=== PATIENT | female | born 1985 | race African-American/Black ===

== ENCOUNTER 2024-02-12 01:04 | Emergency (ER) | payer OTHER ==
[2024-02-12] MEDS ORDERED: ROCURONIUM 50 MG/5 ML VIAL IV ONE (01:05)
[2024-02-12] MEDS ORDERED: ETOMIDATE 20 MG/10 ML VIAL IV ONE (01:05)
[2024-02-12] MEDS ORDERED: propofoL 1,000 MG/100 ML VIAL IV ONE ×2 (01:13→07:32)
[2024-02-12 02:25] LABS: Absolute Basophils 0.1 K/uL (0-0.5); Absolute Eosinophils 1.4 K/uL (0-0.5); Absolute Lymphocytes (CBC) 1.4 K/uL (0.7-4.9); Absolute Neutrophil 14.6 K/uL (1.8-8.0); Basophils % 0.4 % (0-1.3); Eosinophils % 7.7 % (0-4.4); Hematocrit 27.6 % (36.0-45.0); Hemoglobin 8.7 g/dL (12.0-15.0); Lymphocytes % 7.7 % (15.3-44.8); MCH 26.5 pg (27.0-35.0); MCHC 31.6 g/dL (32.0-36.0); MCV 83.9 fL (80-100); MPV 7.7 fL (7.6-11.3); Monocytes % 5.4 % (3.3-12.3); Neutrophils % 78.8 % (41.7-73.7); Nucleated RBC Absolute Count 0.2 (0-0); Nucleated Red Blood Cells % 1.3 % (0-0); Platelets 261 thou/uL (152-406); RBC Red Blood Cell Count 3.29 M/uL (3.86-4.86); Red Cell Distribution Width 21.4 % (12.1-15.2)
[2024-02-12] MEDS ORDERED: FUROSEMIDE 40 MG/4 ML VIAL ONE (02:41)
[2024-02-12 02:49] LABS: Arterial Blood Carboxyhemoglob 1.5 % (0-1.5); Blood Gas Oxyhemoglobin 89.5 % (94-97); Blood Gas THB 9.3 g/dl (12-18); Blood O2 Saturation 92.6 % (92-98.5)
[2024-02-12 02:52] LABS: PT Prothrombin Time 15.4 SECONDS (9.4-12.5); Protime INR 1.39
[2024-02-12 02:53] LABS: Thyroid Stimulating Hormone 0.996 uIU/mL (0.358-3.740)
[2024-02-12 02:56] LABS: Albumin 2.3 g/dL (3.4-5.0); Albumin/Globulin Ratio 0.5 (1.1-1.8); Anion Gap 16.2 mEq/L (5.0-15.0); Bilirubin Direct 0.2 mg/dL (0-0.2); Bilirubin Indirect, Calculated 0.8 mg/dL (0.2-0.8); Globulin 4.7 g/dL (2.3-3.5); Magnesium 2.5 mg/dL (1.6-2.4); Potassium 4.2 mEq/L (3.5-5.1); Troponin High Sensitivity 35.2 pg/mL (<58.9)
--- NOTE | 2024-02-12 04:54 | RAD REPORT ---
EXAM: CT Head Without Intravenous Contrast CLINICAL HISTORY: The patient is 39 years old and is Female; Dizzy. TECHNIQUE: Axial computed tomography images of the head/brain without intravenous contrast. Sagit ailin and coronal reformatted images were created and reviewed. This CT exam was performed using one or more of the following dose reduction techniques: automated exposure control, adjustment of t he mA and/or kV according to patient size, and/or use of iterative reconstruction technique. COMPARISON: No relevant prior studies available. FINDINGS: Brain: Unremarkable. No hemorrhage. No significant white matter disease. No edema. Ventricles: Unremarkable. No ventriculomegaly. Bones/joints: Unremarkable. No acute skull fracture. Soft tissues: Unremarkable. Sinuses: Mild mucosal thickening. Mastoid air cells: No significant mastoid fluid. Tubes, lines and devices: NG tube visualized. IMPRESSION: No acute intracranial findings. No hemorrhage. Electronically signed by: Kim Davis MD 02/12/2024 04:50 AM [facility] [place] Due to temporary technical issues with the PACS/AMDL reporting system, reports are being milla d by the in-house radiologist without review as a courtesy to ensure prompt reporting the interpreting radiologist is fully responsible for the content of the report. Transcribed Date/Time: 02/12/2024 4:54 AM
--- NOTE | 2024-02-12 04:56 | RAD REPORT ---
CT CHEST ABDOMEN PELVIS WITHOUT IV CONTRAST CLINICAL INDICATIONS: Abdominal distention COMPARISON: Chest radiograph 02/12/2024 TECHNIQUE: CT images of the chest, abdomen and pelvis were obtained without contrast. Multiplanar ref ormats were provided. Dose lowering techniques such as automated exposure control, iterative reconstruction, and mA and/or kV adjustment for patient size was utilized for this examination. CHEST FINDINGS: LOWER NECK: Unremarkable. AIRWAYS: Trachea and mainstem bronchi are patent. Endotracheal tube terminates in the intrathoracic t rachea. LUNGS/PLEURA: Consolidative opacities in bilateral lower lobes could represent atelectasis or pneumon ia. Nodular and dense groundglass opacities throughout remainder of the lungs may represent pulmonary edema or pneumonia. Trace bilateral pleural effusions. No pneumothorax. VASCULATURE: No evidence of thoracic aortic aneurysm. MEDIASTINUM/NODES: Multiple mildly enlarged mediastinal and axillary lymph nodes. Evaluation for rohini r lymph nodes are limited by lack of intravenous contrast. HEART: Marked cardiomegaly. Small pericardial effusion. Heavy annular calcification of mitral valve. Scattered coronary artery calcifications. Right IJ central venous catheter terminates in the superior atriocaval junction. CHEST WALL: Diffuse body wall edema. BONES: Unremarkable. ABDOMEN/PELVIS FINDINGS: LIVER: Liver is enlarged. No focal lesion. BILIARY: Unremarkable. PANCREAS: Unremarkable. SPLEEN: Not enlarged. No focal lesion. ADRENALS: Unremarkable. KIDNEYS/URETERS: Atrophic kidneys. No hydronephrosis. Multiple calcifications in kidneys are likely v ascular in origin. STOMACH: Enteric tube extends into the stomach. Unremarkable. BOWEL: No focal dilatation or bowel thickening. No bowel obstruction. APPENDIX: Appendix is not visualized. No focal inflammation in right lower quadrant to suggest acute appendicitis. MESENTERY/PERITONEUM: A peritoneal dialysis catheter in place. Moderate ascites. No focal collection. No pneumoperitoneum. RETROPERITONEUM: Mildly prominent retroperitoneal lymph nodes. URINARY BLADDER: Decompressed with a Lea catheter. No significant bladder wall thickening. REPRODUCTIVE: Status post hysterectomy. VASCULAR: There is probable periesophageal and upper abdominal varices, limited evaluated by lack of intravenous contrast. No aortic aneurysm. Scattered atherosclerotic calcification of the abdominal and pelvic vasculature. ABDOMINAL/PELVIC WALL: Diffuse body wall edema. BONES: Unremarkable. IMPRESSION: 1. Consolidative opacities in bilateral lower lobes could represent atelectasis or pneumonia. Nodul ar and dense groundglass opacities throughout remainder of the lungs may represent pulmonary edema or pneumonia. Trace bilateral pleural effusions. 2. Marked cardiomegaly. Small pericardial effusion. 3. Multiple mildly enlarged mediastinal and axillary lymph nodes and mildly prominent retroperitone al lymph nodes. 4. Hepatomegaly. 5. Probable periesophageal and upper abdominal varices, limited evaluated by lack of intravenous co ntrast. 6. Moderate ascites. A peritoneal dialysis catheter in place. 7. Anasarca. Electronically signed by: Iwona Hallman MD 02/12/2024 04:52 AM [facility] Due to temporary technical issues with the PACS/Ujogo reporting system, reports are being milla d by the in-house radiologist without review as a courtesy to ensure prompt reporting the interpreting radiologist is fully responsible for the content of the report. Transcribed Date/Time: 02/12/2024 4:56 AM
[2024-02-12 05:10] LABS: Differential Total Cells Count 100; Lymphocytes 7 % (15-42); Segmented Neutrophils 78 % (40-80)
[2024-02-12 05:11] LABS: Anisocytosis 2+; Blood Morphology Comment NOTED (NOT SEEN); Eosinophils 9 % (0-3); Monocytes 6 % (0-10); Nucleated Red Blood Cells 2 /100WBC; Platelet Estimate ADEQ; Polychromasia 2+
[2024-02-12] MEDS ORDERED: VANCOMYCIN 1 GM/VIAL ONE (05:47)
[2024-02-12] MEDS ORDERED: NA CHLORIDE 0.9% 250 ML ONE (05:48)
[2024-02-12] MEDS ORDERED: NA CHLORIDE 0.9% 100 ML ONE (05:48)
[2024-02-12] MEDS ORDERED: CEFEPIME 2 GM VIAL ONE (05:48)
--- NOTE | 2024-02-12 05:56 | EDPHYS ---
Physician Documentation [facility] Name: Kimmie Mcclendon Age: 39 yrs Sex: Female : 1985 Arrival Date: 02/12/2024 Time: 01:04 Bed 3 Private MD: ED Physician Ranjit Celis HPI: 02/11 01:16 This 39 yrs old Black Female presents to ER via Unassigned with complaints of Breathing sp4 Difficulty. 06:13 [age] -year-old female presents with complaint of difficulty breathing. Patient has sp4 history of end-stage renal disease history of thyroidectomy 1 week ago at [facility]. History of peritoneal dialysis. . On presentation patient acutely hypoxemic despite high flow oxygen. Oxygen saturation 67%. Patient unable to provide any history secondary to respiratory distress.. SAMPLE TESTER: 01:59 Not cp4 Historical: - Allergies: 06:03 Hydrocodone-Acetaminophen; cp4 06:03 Vicodin; cp4 06:03 levofloxacin; cp4 06:03 Betadine; cp4 - Immunization history:: Adult Immunizations unknown. - Infectious Disease History:: Denies. - Social history:: Smoking status: unknown. - Family history:: not pertinent. ROS: 06:13 Constitutional: Negative for fever, chills, and weight loss, Positive for respiratory sp4 distress 06:13 All other systems are negative, Exam: 06:13 Constitutional: Thin female, protuberant abdomen, ascites, pallor and cyanosis, sp4 moderate to severe respiratory distress, hypoxemia monitor. Head/Face: Normocephalic, atraumatic. Eyes: Pupils equal round and reactive to light, extra-ocular motions intact. Lids and lashes normal. Conjunctiva and sclera are not injected. Cornea within normal limits. Periorbital areas with no swelling, redness, or edema. ENT: Nares patent. No nasal discharge, no septal abnormalities noted. Tympanic membranes are normal and external auditory canals are clear. Oropharynx with no redness, swelling, or masses, exudates, or evidence of obstruction, uvula midline. Mucous membranes moist. Neck: Trachea midline, no thyromegaly or masses palpated, and no cervical lymphadenopathy. Supple, full range of motion without nuchal rigidity, or vertebral point tenderness. Chest/axilla: Normal chest wall appearance and motion. Nontender with no deformity. No lesions are appreciated. Cardiovascular: Regular rate , severe tachypnea, dyspnea, bilateral crackles, bilateral wheezes in all lung obando. Generalized pallor and cyanosis. Respiratory: Lungs have equal breath sounds bilaterally, clear to auscultation and percussion. No rales, rhonchi or wheezes noted. No increased work of breathing, no retractions or nasal flaring. Abdomen/GI: Soft, with normal bowel sounds. No distension or tympany. No guarding or rebound. No evidence of tenderness throughout. Back: No spinal tenderness. No costovertebral tenderness. Female : Normal external genitalia. Skin: Diaphoretic patient and cyanotic, no lesions, and no evidence of cellulitis. MS/ Extremity: Pulses equal, no cyanosis. Neurovascular intact. Full, normal range of motion. Neuro: Awake and alert, exam limited secondary to severe respiratory distress 06:13 ECG was reviewed by the Attending Physician. EKG 0 224 normal sinus rhythm, prolonged QT, sinus rhythm rate 84. Vital Signs: 01:00 BP 129 / 98; Pulse 100; Resp 46; Temp 97.8; Pulse Ox 60% on BiPAP; Weight 63.05 kg; cp4 Pain 0/10; 01:30 BP 146 / 106; Pulse 89; Resp 20; Pulse Ox 86% on ETT ambu; cp4 02:00 BP 154 / 106; Pulse 87; Resp 15; Pulse Ox 97% on ETT vent; cp4 02:38 BP 143 / 102; Pulse 85; Resp 15; Pulse Ox 97% on ETT vent; cp4 03:00 BP 155 / 107; Pulse 85; Resp 18; Pulse Ox 95% on ETT vent; cp4 03:30 BP 148 / 105; Pulse 79; Resp 18; Pulse Ox 96% on ETT vent; cp4 04:00 BP 159 / 110; Pulse 77; Resp 14; Pulse Ox 94% on ETT vent; cp4 04:30 BP 169 / 112; Pulse 74; Resp 14; Pulse Ox 95% on ETT vent; cp4 05:00 BP 162 / 113; Pulse 71; Resp 18; Pulse Ox 98% on ETT vent; cp4 05:30 BP 167 / 114; Pulse 71; Resp 18; Pulse Ox 97% on ETT vent; cp4 06:00 BP 164 / 119; Pulse 69; Resp 18; Pulse Ox 98% on ETT vent; cp4 06:30 BP 164 / 112; Pulse 70; Resp 18; Pulse Ox 97% on ETT vent; cp4 01:00 Pain Scale: Adult cp4 Kaushik Coma Score: 06:13 Eye Response: spontaneous(4). Motor Response: obeys commands(6). Verbal Response: sp4 confused(4). Total: 14. Procedures: 02:00 Intubation: Intubated orally using S4 glide scope assisted intubation with 7.5 mm ETT. sp4 was successful on first attempt. Ventilated with Ambu bag. ventilator. Tube secured with ETT rios at center of mouth measured 23 cm at lip. Placement verified by CXR, CO2 detector with (+) color change, auscultating bilateral breath sounds, O2 saturation after procedure was 96 %. Patient tolerated well, Intubated emergently with RSI for impending respiratory failure. 02:39 Central Line: the site was prepped with Betadine, in sterile fashion, a triple lumen sp4 catheter was inserted, in the right internal jugular vein, in 1 attempts. placement was verified, by CXR, by blood return, Ultrasound Guided Line, the site was dressed with 4X4s, Tegaderm, using sterile technique, the patient tolerated the procedure, well, Placed emergently for vascular access. MDM: 02:36 Medical Screening Exam initiated sp4 02:54 ED course: EXAM DESCRIPTION: Chest Single View CLINICAL HISTORY: intubation COMPARISON: sp4 None TECHNIQUE: Single AP view of the chest. FINDINGS: Endotracheal tube tip approximately 3.9 cm above the angella. Lung volumes adequate. Cardiac silhouette is enlarged. No pneumothorax. No large pleural effusion. Diffuse bilateral patchy airspace disease. No acute bony finding. Surgical clips project over the right inferior neck. IMPRESSION: 1. Endotracheal tube tip approximately 3.9 cm above the angella. 2. Diffuse bilateral patchy airspace disease. Differential considerations include pulmonary edema versus atypical/viral pneumonia. 3. Enlarged cardiac silhouette.. 05:46 ED course: EXAM: XR Chest, 1 View CLINICAL HISTORY: The patient is 39 years old and is sp4 Female; Central line TECHNIQUE: Frontal view of the chest. COMPARISON: Chest radiograph performed the same day at 0131 hours FINDINGS: LUNGS: Extensive pulmonary opacities are noted throughout the lungs, stable from prior exam. PLEURAL SPACE: Trace pleural effusion is present. No pneumothorax. HEART: The cardiac silhouette is enlarged. MEDIASTINUM: Unremarkable. Normal mediastinal contour. BONES/JOINTS: Unremarkable. No acute fracture. TUBES, LINES AND DEVICES: The endotracheal tube (ETT) is in satisfactory position. The enteric tube is present with the tip in the proximal stomach. Right IJ central venous catheter is present with the tip in the SVC. UPPER ABDOMEN: Unremarkable as visualized. IMPRESSION: 1. Right IJ central venous catheter is present with the tip in the SVC. 2. Otherwise, stable chest. . 05:55 Differential diagnosis: Anemia CHF exacerbation, Chronic Obstructive Pulmonary Disease sp4 Myocardial Infarction pneumonia, Pneumothorax Psychogenic pulmonary edema. Immunization status:. Data reviewed: vital signs, nurses notes, EMS record, lab test result(s), EKG, radiologic studies, CT scan, plain films. ED course: EXAM: CT Head Without Intravenous Contrast CLINICAL HISTORY: The patient is 39 years old and is Female; Dizzy. TECHNIQUE: Axial computed tomography images of the head/brain without intravenous contrast. Sagittal and coronal reformatted images were created and reviewed. This CT exam was performed using one or more of the following dose reduction techniques: automated exposure control, adjustment of the mA and/or kV according to patient size, and/or use of iterative reconstruction technique. COMPARISON: No relevant prior studies available. FINDINGS: Brain: Unremarkable. No hemorrhage. No significant white matter disease. No edema. Ventricles: Unremarkable. No ventriculomegaly. Bones/joints: Unremarkable. No acute skull fracture. Soft tissues: Unremarkable. Sinuses: Mild mucosal thickening. Mastoid air cells: No significant mastoid fluid. Tubes, lines and devices: NG tube visualized. IMPRESSION: No acute intracranial findings. No hemorrhage. . ED course: CT - IMPRESSION: 1. Consolidative opacities in bilateral lower lobes could represent atelectasis or pneumonia. Nodular and dense groundglass opacities throughout remainder of the lungs may represent pulmonary edema or pneumonia. Trace bilateral pleural effusions. Final Radiology Report 2. Marked cardiomegaly. Small pericardial effusion. 3. Multiple mildly enlarged mediastinal and axillary lymph nodes and mildly prominent retroperitoneal lymph nodes. 4. Hepatomegaly. 5. Probable periesophageal and upper abdominal varices, limited evaluated by lack of intravenous contrast. 6. Moderate ascites. A peritoneal dialysis catheter in place. 7. Anasarca. Electronically signed by: Iwona Hallman MD 02/12/2024 04:52 AM. 02/11 01:17 Order name: Basic Metabolic Panel; Complete Time: 05:36 [facility] 02/11 01:17 Order name: CBC with Diff; Complete Time: 05:36 [facility] 02/11 01:17 Order name: LFT's; Complete Time: 05:36 [facility] 02/11 01:17 Order name: Magnesium; Complete Time: 05:36 [facility] 02/11 01:17 Order name: NT PRO-BNP; Complete Time: 05:36 [facility] 02/11 01:17 Order name: PT-INR; Complete Time: 05:36 [facility] 02/11 01:17 Order name: Troponin HS; Complete Time: 05:36 [facility] 02/11 01:19 Order name: Blood Culture Adult (2) [facility] 02/11 01:19 Order name: Lactate w/ 2H reflex if indic.; Complete Time: 05:36 [facility] 02/11 01:19 Order name: TSH; Complete Time: 05:36 [facility] 02/11 01:19 Order name: T4 Free; Complete Time: 05:36 [facility] 02/11 01:19 Order name: Test, Serum; Complete Time: 02:46 [facility] 02/11 01:19 Order name: Type And Screen; Complete Time: 05:36 [facility] 02/11 01:19 Order name: Ptt, Activated; Complete Time: 02:46 [facility] 02/11 02:45 Order name: ABG Arterial Blood Gas; Complete Time: 05:36 [facility] 02/11 02:59 Order name: Ghost Lactate-NO COLLECT Timer; Complete Time: 05:36 [facility] 02/11 04:22 Order name: Manual Differential; Complete Time: 05:36 [facility] 02/11 05:55 Order name: Lactate Sepsis 2 HR Follow-up; Complete Time: 06:21 [facility] 02/11 01:17 Order name: XRAY Chest (1 view) [facility] 02/11 01:58 Order name: CXR XRAY [facility] 02/11 02:16 Order name: CT Head Brain wo Cont; Complete Time: 05:36 [facility] 02/11 02:16 Order name: CT Chest Abdomen Pelvis W/O Contrast; Complete Time: 05:36 [facility] 02/11 01:17 Order name: EKG; Complete Time: 01:18 02/11 01:17 Order name: Intubation Setup; Complete Time: 02:04 02/11 01:17 Order name: Cardiac monitoring; Complete Time: 02:04 02/11 01:17 Order name: EKG - Nurse/Tech; Complete Time: 02:25 02/11 01:17 Order name: IV Saline Lock; Complete Time: 02:04 02/11 01:17 Order name: Labs collected and sent; Complete Time: 02:04 02/11 01:17 Order name: O2 Per Protocol; Complete Time: 02:04 02/11 01:17 Order name: O2 Sat Monitoring; Complete Time: 02:04 02/11 01:18 Order name: Central Line Dressing Kit; Complete Time: 02:04 02/11 01:18 Order name: Central Line Kit; Complete Time: 02:04 02/11 01:18 Order name: Chlorhexidine prep; Complete Time: 02:04 02/11 01:18 Order name: Consent for central line completed; Complete Time: 02:04 02/11 01:18 Order name: Line Caps x3; Complete Time: 02:04 02/11 01:18 Order name: NS Flushes x3; Complete Time: 02:04 02/11 01:18 Order name: Sterile Gloves; Complete Time: 02:04 02/11 01:18 Order name: Sterile Probe Cover; Complete Time: 02:04 02/11 01:19 Order name: Lea; Complete Time: 02:02 02/11 05:52 Order name: NPO; Complete Time: 05:55 sp4 EC:24 Rate is 84 beats/min. Rhythm is regular, Normal Sinus Rhythm. QRS Moro is Normal. PA sp4 interval is normal. QRS interval is normal. QT interval is prolonged. No Q waves. T waves are Normal. No ST changes noted. Clinical impression: No evidence of ischemia. Interpreted by me. Reviewed by me. Administered Medications: 01:30 Drug: Rocuronium IVP 100 mg IVP once Route: IVP; Site: left jugular; cp4 07:50 Follow up: Response: No adverse reaction ko1 01:30 Drug: Etomidate IVP 20 mg IVP once Route: IVP; Site: left jugular; cp4 07:50 Follow up: Response: No adverse reaction ko1 02:03 Drug: Propofol IV 5 mcg/kg/min IV at calculated rate See Administration Instructions; cp4 Standard concentration 1000 mg / 100 mL; Recommended max rate 50 mcg/kg/min; Titrate 5 mcg/kg/min every 5 minutes to achieve goal (see titration policy); Goal parameter RASS score 0 to -2 Route: IV; Rate: calculated rate; Site: left jugular; 07:50 Follow up: Response: No adverse reaction; IV Status: Infusion continued upon transfer ko1 02:04 Drug: Mupirocin Topical Ointment 2 % 1 application Topical in both nares continuous; cp4 Pea sized amount to both nares Route: Topical; Site: affected area; 02:12 Not Given (Physician Discretion): albuterol2.5 mg Inhalation once cp4 02:49 Drug: Furosemide IVP 100 mg IVP once; give over 2 minutes Route: IVP; Site: right cp4 jugular; 06:01 Follow up: Response: No adverse reaction cp4 06:01 Drug: Cefepime IVPB 2 grams IVPB at 200 ml/hr once over 30 mins; (mix in NS 100 mL) cp4 Route: IVPB; Rate: 200 ml/hr; Infused Over: 30 mins; Site: right jugular; 06:36 Follow up: IV Status: Completed infusion cp4 06:01 Drug: hydrALAZINE IVP 10 mg IVP once Route: IVP; Site: right jugular; cp4 06:36 Follow up: Response: No adverse reaction cp4 06:36 Drug: vancoMYCIN IVPB 1 grams IVPB once over 2 hrs Route: IVPB; Infused Over: 2 hrs; cp4 Site: right jugular; 07:49 Follow up: Response: No adverse reaction; IV Status: Completed infusion; IV Intake: ko1 250ml 07:09 Not Given (Other Intervention Used): [id number] mg IVP once; Document RASS score. ko1 Disposition: 06:20 Critical Care:. sp4 Disposition Summary: 02/12/24 05:55 Transfer Ordered Notes: Transfer Location: [facility] sp4 Reason: Higher level of care sp4 Condition: Stable sp4 Problem: new sp4 Symptoms: have improved sp4 Accepting Physician: Attending Kike YUEN (12/26/24 08:10) ko1 Diagnosis - Acute respiratory failure sp4 - Acute on chronic respiratory failure, cardiomegaly, flash pulmonary edema, volume sp4 overload, end-stage renal disease on peritoneal dialysis Forms: - Medication Reconciliation Form sp4 - SBAR form sp4 Critical care time excluding procedures: 06:20 Critical care time: Bedside Care: 36 minutes, Consultation: 12 minutes, Family sp4 Intervention: 12 minutes. Total time: 60 minutes Signatures: Dispatcher [employer] EDDaksha Arreola RN RN ko1 Ranjit Celis MD MD sp4 Bia Zabala cp4 Corrections: (The following items were deleted from the chart) 01:20 01:20 TEST, SERUM+SC.LAB.BRZ ordered. EDMS EDMS 01:20 01:20 TYPE AND SCREEN+BB.LAB.BRZ ordered. EDMS EDMS 01:20 01:20 Urinalysis+U.LAB.BRZ ordered. EDMS EDMS 06:04 01:00 Allergies: No Known Allergies; 4 4 08:10 05:55 Attending Kike YUEN sp4 ko1
--- NOTE | 2024-02-12 05:56 | ER ---
Nurse's Notes [facility] Name: Kimmie Mcclendon Age: 39 yrs Sex: Female : 1985 Arrival Date: 02/12/2024 Time: 01:04 Bed 3 Private MD: Diagnosis: Acute respiratory failure;Acute on chronic respiratory failure, cardiomegaly, flash pulmonary edema, volume overload, end-stage renal disease on peritoneal dialysis Presentation: 02/11 01:00 Chief complaint: EMS states: shortness of breath. Patient was 60% on BiPAP. Patient is cp4 dialysis. 01:00 Coronavirus screen: Client denies travel out of the [place] in the last 14 days. At this cp4 time, the client does not indicate any symptoms associated with coronavirus-19. Ebola Screen: Patient negative for fever greater than or equal to 101.5 degrees Fahrenheit, and additional compatible Ebola Virus Disease symptoms Patient denies exposure to infectious person. Patient denies travel to an Ebola-affected area in the 21 days before illness onset. No symptoms or risks identified at this time. Initial Sepsis Screen: Does the patient meet any 2 criteria? RR > 20 per min. HR > 90 bpm. Yes Does the patient have a suspected source of infection? No. Patient's initial sepsis screen is negative. Risk Assessment: Do you want to hurt yourself or someone else? Patient reports no desire to harm self or others. Onset of symptoms is unknown. 01:00 Acuity: TROY 2 cp4 01:00 Method Of Arrival: EMS: [facility] 4 Triage Assessment: 01:00 General: Appears distressed, uncomfortable, Behavior is cooperative, appropriate for cp4 age, anxious. Pain: Denies pain. EENT: No signs and/or symptoms were reported regarding the EENT system. Neuro: Level of Consciousness is awake, alert, obeys commands, Oriented to person, place, time, situation. Cardiovascular: Patient's skin is warm and dry. Respiratory: Reports shortness of breath air hunger labored breathing Airway is patent Respiratory effort is labored, gasping, using tripod position, Patient placed on BiPAP: Breath sounds are diminished bilaterally. Onset: The symptoms/episode began/occurred at an unknown time. the patient has severe shortness of breath. GI: No signs and/or symptoms were reported involving the gastrointestinal system. : No signs and/or symptoms were reported regarding the genitourinary system. Derm: No signs and/or symptoms reported regarding the dermatologic system. Musculoskeletal: No signs and/or symptoms reported regarding the musculoskeletal system. MANAGER WORK: 01:59 Not cp4 Historical: - Allergies: 06:03 Hydrocodone-Acetaminophen; cp4 06:03 Vicodin; cp4 06:03 levofloxacin; cp4 06:03 Betadine; cp4 - Immunization history:: Adult Immunizations unknown. - Infectious Disease History:: Denies. - Social history:: Smoking status: unknown. - Family history:: not pertinent. Screenin:[facility] ED Fall Risk Assessment (Adult) History of falling in the last 3 months, cp4 including since admission No falls in past 3 months (0 pts) Confusion or Disorientation No (0 pts) Intoxicated or Sedated No (0 pts) Impaired Gait No (0 pts) Mobility Assist Device Used No (0 pt) Altered Elimination No (0 pt) Score/Fall Risk Level 0 - 2 = Low Risk Oriented to surroundings, Maintained a safe environment, Assessed \T\ reinforced patient's understanding of fall precautions, Hourly rounding (assess needs \T\ fall precautionary measures) done. Abuse screen: Denies threats or abuse. Nutritional screening: No deficits noted. Tuberculosis screening: No symptoms or risk factors identified. Assessment: 02:21 Reassessment: No changes from previously documented assessment. Cardiovascular: Rhythm cp4 is sinus rhythm. 03:30 Reassessment: Patient and/or family updated on plan of care and expected duration. Pain cp4 level reassessed. 04:22 Reassessment: Patient and/or family updated on plan of care and expected duration. Pain cp4 level reassessed. 07:47 Reassessment: notified patients GISELLAaron Tanges of patient being transferred. She ko1 verbalized understanding and appreciation. Vital Signs: 01:00 BP 129 / 98; Pulse 100; Resp 46; Temp 97.8; Pulse Ox 60% on BiPAP; Weight 63.05 kg; cp4 Pain 0/10; 01:30 BP 146 / 106; Pulse 89; Resp 20; Pulse Ox 86% on ETT ambu; cp4 02:00 BP 154 / 106; Pulse 87; Resp 15; Pulse Ox 97% on ETT vent; cp4 02:38 BP 143 / 102; Pulse 85; Resp 15; Pulse Ox 97% on ETT vent; cp4 03:00 BP 155 / 107; Pulse 85; Resp 18; Pulse Ox 95% on ETT vent; cp4 03:30 BP 148 / 105; Pulse 79; Resp 18; Pulse Ox 96% on ETT vent; cp4 04:00 BP 159 / 110; Pulse 77; Resp 14; Pulse Ox 94% on ETT vent; cp4 04:30 BP 169 / 112; Pulse 74; Resp 14; Pulse Ox 95% on ETT vent; cp4 05:00 BP 162 / 113; Pulse 71; Resp 18; Pulse Ox 98% on ETT vent; cp4 05:30 BP 167 / 114; Pulse 71; Resp 18; Pulse Ox 97% on ETT vent; cp4 06:00 BP 164 / 119; Pulse 69; Resp 18; Pulse Ox 98% on ETT vent; cp4 06:30 BP 164 / 112; Pulse 70; Resp 18; Pulse Ox 97% on ETT vent; cp4 01:00 Pain Scale: Adult cp4 [place] Coma Score: 06:13 Eye Response: spontaneous(4). Motor Response: obeys commands(6). Verbal Response: sp4 confused(4). Total: 14. ED Course: 01:00 Arm band placed on right wrist. Patient placed in an exam room, on a stretcher. cp4 01:05 Initial lab(s) drawn, by me, by ED staff, sent to lab. First set of blood cultures cp4 drawn by ED staff. Inserted saline lock: 18 gauge in left EJ, using aseptic technique. Blood collected. Flushed with 10 mL NS. 01:07 Patient arrived in ED. [email or web address] 01:16 Ranjit Celis MD is Attending Physician. sp4 01:57 Bia Zabala is Primary Nurse. cp4 02:00 XRAY Chest (1 view) In Process Unspecified. EDMS 02:00 Assisted provider with central line placement. Set up central line tray. Triple lumen cp4 line placed in right internal jugular. Line placed by Ranjit Celis MD Placement verified by CXR, blood return, Dressed with Tegaderm, Blood was collected. Patient tolerated well. Before procedure, did Practitioner(s) obtain informed consent? Yes. Patient \T\ family education about procedure, CLABSI prevention and S/S of infection? Yes. Time-out/Briefing performed prior to start of procedure? Yes. Was handwashing/sanitizing done immediately prior to procedure? Yes. Was patient positioned to in a way to prevent air embolism? Yes. Was procedure site sterilized? Yes, with chlorhexidine. Was the site allowed to dry? Yes. Was local anesthetic and/or sedation utilized? Yes. During the procedure, did the Practitioner(s) maintain a sterile field? Yes. Were unused ports clamped during insertion? Yes. Was a 2nd qualified MD obtained after 3 unsuccessful insertion attempts? No. Was blood aspirated from each lumen? Yes. After the procedure, did the Practitioner(s) clean the site and apply a sterile dressing? Yes. Lea cath inserted, using sterile technique, 16 Fr., by ED staff, balloon inflated, to gravity drainage. 02:00 Assisted provider with central line placement. Assisted provider with: Assisted sa1 provider and nurse with central line. 02:12 CXR XRAY In Process Unspecified. EDMS 02:17 Triage completed. cp4 02:21 Placed in gown. Bed in low position. Call light in reach. Side rails up X2. Client cp4 placed on continuous cardiac and pulse oximetry monitoring. NIBP monitoring applied. culinary instructor on. Pulse ox on. NIBP on. One-on-one care X 60 minutes. 02:24 NGT: inserted 14 Fr. via left nare. verified placement of air over stomach, verified cp4 return of gastric contents, Placement verified by X-ray, to intermittent suction. Returned gastric contents. Patient tolerated well. 02:50 Accessed Central Line Clean \T\ dry. Dressing intact. Good blood return. Flushes easily. cp4 03:54 CT Head Brain wo Cont In Process Unspecified. EDMS 03:54 CT Chest Abdomen Pelvis W/O Contrast In Process Unspecified. EDMS 04:52 initiated transfer with [facility] Jerson spoke with Cilnton balderrama at transfer center patient was denied due to no ICU Beds. 05:10 initiated transfer with yadi spoke with Deb, Patient was denied due to capacity vk per transfer center. 07:10 initiated transfer with [facility] patient was accepted per transfer center, initiated transfer with EMS patient was accepeted. 07:43 Patient transferred, IV remains in place. ko1 07:43 Provided Education on: transfer. ko1 Administered Medications: 01:30 Drug: Rocuronium IVP 100 mg IVP once Route: IVP; Site: left jugular; cp4 07:50 Follow up: Response: No adverse reaction ko1 01:30 Drug: Etomidate IVP 20 mg IVP once Route: IVP; Site: left jugular; cp4 07:50 Follow up: Response: No adverse reaction ko1 02:03 Drug: Propofol IV 5 mcg/kg/min IV at calculated rate See Administration Instructions; cp4 Standard concentration 1000 mg / 100 mL; Recommended max rate 50 mcg/kg/min; Titrate 5 mcg/kg/min every 5 minutes to achieve goal (see titration policy); Goal parameter RASS score 0 to -2 Route: IV; Rate: calculated rate; Site: left jugular; 07:50 Follow up: Response: No adverse reaction; IV Status: Infusion continued upon transfer ko1 02:04 Drug: Mupirocin Topical Ointment 2 % 1 application Topical in both nares continuous; cp4 Pea sized amount to both nares Route: Topical; Site: affected area; 02:12 Not Given (Physician Discretion): albuterol2.5 mg Inhalation once cp4 02:49 Drug: Furosemide IVP 100 mg IVP once; give over 2 minutes Route: IVP; Site: right cp4 jugular; 06:01 Follow up: Response: No adverse reaction cp4 06:01 Drug: Cefepime IVPB 2 grams IVPB at 200 ml/hr once over 30 mins; (mix in NS 100 mL) cp4 Route: IVPB; Rate: 200 ml/hr; Infused Over: 30 mins; Site: right jugular; 06:36 Follow up: IV Status: Completed infusion cp4 06:01 Drug: hydrALAZINE IVP 10 mg IVP once Route: IVP; Site: right jugular; cp4 06:36 Follow up: Response: No adverse reaction cp4 06:36 Drug: vancoMYCIN IVPB 1 grams IVPB once over 2 hrs Route: IVPB; Infused Over: 2 hrs; cp4 Site: right jugular; 07:49 Follow up: Response: No adverse reaction; IV Status: Completed infusion; IV Intake: ko1 250ml 07:09 Not Given (Other Intervention Used): [id number] mg IVP once; Document RASS score. ko1 Medication: 02:21 VIS not applicable for this client. cp4 Intake: 07:49 IV: 250ml; Total: 250ml. ko1 Outcome: 05:55 ER care complete, transfer ordered by . sp4 07:43 Condition: stable ko1 07:43 Instructed on the need for transfer, 08:10 Transferred by ground EMS [facility]. ko1 08:10 Patient left the ED. ko1 Signatures: Dispatcher [employer] EDMS Deandra Hudson Kathy, RN RN ko1 Ranjit Celis MD MD sp4 Bia Zabala cp4 Evette Mcdonough Sultan sa1 Corrections: (The following items were deleted from the chart) 02:02 01:59 BP 129 / 98; Pulse 100bpm; Resp 42bpm; Pulse Ox 60% BiPAP; Temp 97.8F; 63.05 kg; cp4 Pain 0/10, Adult; cp4 03:24 01:00 Method Of Arrival: EMS: [facility] cp4 cp4 06:04 01:00 Allergies: No Known Allergies; cp4 cp4 08:10 07:43 [facility] ko1 ko1
[2024-02-12] MEDS ORDERED: HYDRALAZINE HCL 20 MG/ML VIAL ONE (05:57)
--- NOTE | 2024-02-12 06:22 | RAD REPORT ---
EXAM DESCRIPTION: Chest Single View CLINICAL HISTORY: intubation COMPARISON: None TECHNIQUE: Single AP view of the chest. FINDINGS: Endotracheal tube tip approximately 3.9 cm above the angella. Lung volumes adequate. Cardiac silhouette is enlarged. No pneumothorax. No large pleural effusion. Diffuse bilateral patchy airspace disease. No acute bony finding. Surgical clips project over the right inferior neck. IMPRESSION: 1. Endotracheal tube tip approximately 3.9 cm above the angella. 2. Diffuse bilateral patchy airspace disease. Differential considerations include pulmonary edema v ersus atypical/viral pneumonia. 3. Enlarged cardiac silhouette. Electronically signed by: Teresa Kimbrough MD 02/12/2024 02:17 AM [facility] Z9 Due to temporary technical issues with the PACS/[employer] reporting system, reports are being milla d by the in-house radiologist without review as a courtesy to ensure prompt reporting the interpreting radiologist is fully responsible for the content of the report. Transcribed Date/Time: 02/12/2024 6:21 AM
--- NOTE | 2024-02-12 06:24 | RAD REPORT ---
EXAM: XR Chest, 1 View CLINICAL HISTORY: The patient is 39 years old and is Female; Central line TECHNIQUE: Frontal view of the chest. COMPARISON: Chest radiograph performed the same day at 0131 hours FINDINGS: LUNGS: Extensive pulmonary opacities are noted throughout the lungs, stable from prior exam. PLEURAL SPACE: Trace pleural effusion is present. No pneumothorax. HEART: The cardiac silhouette is enlarged. MEDIASTINUM: Unremarkable. Normal mediastinal contour. BONES/JOINTS: Unremarkable. No acute fracture. TUBES, LINES AND DEVICES: The endotracheal tube (ETT) is in satisfactory position. The enteric tube is present with the tip in the proximal stomach. Right IJ central venous catheter is present with the tip in the SVC. UPPER ABDOMEN: Unremarkable as visualized. IMPRESSION: 1. Right IJ central venous catheter is present with the tip in the SVC. 2. Otherwise, stable chest. Electronically signed by: Joellen Aguilar MD 02/12/2024 02:32 AM APARTMENT LEASING CONSULTANT RP Due to temporary technical issues with the PACS/[employer] reporting system, reports are being milla d by the in-house radiologist without review as a courtesy to ensure prompt reporting the interpreting radiologist is fully responsible for the content of the report. Transcribed Date/Time: 02/12/2024 6:23 AM
[2024-02-12 08:48] VITALS: BP 164/112; O2SAT 97
--- NOTE | 2024-02-13 13:39 | EKG ---
Test Date: 2024-02-12 Test Time: 02:24:59 Exhaust Emissions Inspector: MEASUREMENT RESULTS: Intervals: Rate: 84 NH: 188 QRSD: 94 QT: 458 QTc: 541 [place]: P: 69 NH: 188 QRS: 28 T: 23 INTERPRETIVE STATEMENTS: Normal sinus rhythm Prolonged QT Abnormal ECG No previous ECG available for comparison Electronically Signed On 02-13-24 13:36:38 [employer]ER AND BLENDER by Irving Vee
== END 2024-02-12 08:10 | disposition short-term general hospital (02) ==
LOC: ER 01:04
DX: J96.20 Acute and chronic respiratory failure, unspecified whether with hypoxia or hypercapnia (principal); I51.7 Cardiomegaly; J81.0 Acute pulmonary edema; E87.70 Fluid overload, unspecified; N18.6 End stage renal disease; Z99.2 Dependence on renal dialysis; Z98.890 Other specified postprocedural states; E89.0 Postprocedural hypothyroidism
CPT/HCPCS: 93005; 87040 ×2; 85025; 80048; 36415; 86900; 83735; 86850; 84703; 85610; 86901; 80076; 83605 ×2; 85730; 84443; 84484; 84439; 83880; 70450; 71250; 74176; 71045 ×2; 82805; 31500; 51702; 99291; 99292; 36556 ×2; 36600; 94002; J2704 ×2; J0360; J1940; J0692; J7050